=== PATIENT | female | born 1930 | race Caucasian/White ===

== ENCOUNTER 2017-10-25 09:47 | Inpatient (IN) | payer MEDICARE ==
[~2017-10-25] VITALS: Ht 152.4 cm; Wt 69.0 kg
[~2017-10-25 09:47] MED LIST: ASPI81 PO; LOTE20TA PO; SPIR25TA PO; TOPR100T15 PO; TOPR50TA PO
[2017-10-25 09:50] VITALS: BP 149/75; PULSE 87; RESP 16; TEMP 98.9; O2SAT 97
[2017-10-25] MEDS ORDERED: BENA20TA PO (10:11)
[2017-10-25] MEDS ORDERED: METO1TAB9 PO (10:11)
[2017-10-25] MEDS ORDERED: SPIR25TA PO (10:11)
[2017-10-25] MEDS ORDERED: METH2.5T PO (10:11)
[2017-10-25] MEDS ORDERED: TOPR100T PO (10:11)
[2017-10-25] MEDS ORDERED: SODIUM CHLORIDE 0.9% FLUSH 10 ML FLUSH IVF PRN (11:00)
[2017-10-25 11:30] VITALS: BP 130/67; PULSE 68; RESP 18; O2SAT 99
--- NOTE | 2017-10-25 11:39 | RADRPT ---
EXAM DATE/TIME: 10/25/2017 10:57 [facility] COMPARISON: CHEST SINGLE AP, February 25, 2015, 13:06. INDICATIONS : Short of breath and chest pain. MEDICAL HISTORY : None. SURGICAL HISTORY : None. ENCOUNTER: Initial ACUITY: 1 day PAIN SCORE: 4/10 LOCATION: Bilateral chest There are consolidative changes left base. Right lung is clear. Mild compensated clinically. The po rtion of the bony skeleton visualized is unremarkable. CONCLUSION: Consolidative changes left base. Eddie Naylor MD FACR on October 25, 2017 at 11:36 Board Certified Radiologist. This report was verified electronically.
[2017-10-25 11:47] LABS: AUTOMATED NEUTROPHIL # 4.6 TH/MM3 (1.8-7.7); BASOPHIL # 0.1 TH/MM3 (0-0.2); BASOPHIL % 0.9 % (0.0-2.0); EOSINOPHIL # 0.3 TH/MM3 (0-0.4); EOSINOPHIL % 3.8 % (0.0-4.0); HEMATOCRIT 34.2 % (35.0-46.0); HEMO FLAGS DIFF FINAL; LYMPH % 19.3 % (9.0-44.0); LYMPHOCYTE # 1.5 TH/MM3 (1.0-4.8); MEAN CELL VOLUME 103.4 FL (80.0-100.0); MEAN CORPUSCULAR HEMOGLOBIN 34.3 PG (27.0-34.0); MEAN CORPUSCULAR HGB CONC 33.2 % (32.0-36.0); MONO % 14.5 % (0.0-8.0); NEUT % 61.5 % (16.0-70.0); PLATELET COUNT 269 TH/MM3 (150-450); RED BLOOD COUNT 3.31 MIL/MM3 (4.00-5.30); RED CELL DISTRIBUTION WIDTH 13.8 % (11.6-17.2); WHITE BLOOD COUNT 7.5 TH/MM3 (4.0-11.0)
--- NOTE | 2017-10-25 11:47 | PD ---
HPI Chief Complaint: Respiratory Symptoms Time Seen by Provider: 10:40 Travel History International Travel<30 days: No Contact w/Intl Traveler<30days: No Traveled to known affect area: No History of Present Illness HPI Thin 87-year-old woman who presents to the emergency department saying that she' s been unable to breathe well for the past 3 weeks. She is a history of psoriatic arthritis and is on methotrexate, as well as CAD, and her history of diagonal diabetes in the past. She tripped and fell about 3 weeks ago. She was seen by her primary doctor who ordered x-rays of her left arm and CT scans of her head and face withdrawal reportedly unremarkable. Since that time she's had progressive worsening shortness of breath and dyspnea on exertion. Symptoms been constant and progressive since onset. No aggravating or alleviating factors. She's not had any pain in the chest or tenderness in the chest wall. She went to her primary doctor did an x-ray of her chest and then sent her to the emergency department. X-ray of the [place] poorly shows left- sided pleural effusion and some broken ribs. History Past Medical History Narrative Medical Psoriatic arthritis, on methotrexate CAD History of diabetes, diet-controlled Tetanus Vaccination: Unknown Influenza Vaccination: Yes Social History Alcohol Use: No Tobacco Use: No Allergies-Medications (Allergen,Severity, Reaction): Coded Allergies: lactose (Unverified Allergy, Severe, CRAMPING, BLOATING, HEADACHE, ) penicillin G (Unverified Allergy, Severe, RASH AND BLISTERS, 10/25/17) Reported Meds & Prescriptions Reported Meds & Active Scripts Active Reported Toprol XL (Metoprolol Succinate) 100 Mg Tab 100 Mg PO DAILY Spironolactone 25 Mg Tab 25 Mg PO DAILY Metoprolol Succinate ER 24 HR (Metoprolol Succinate) 50 Mg Tab 50 Mg PO HS Benazepril (Benazepril HCl) 20 Mg Tab 20 Mg PO HS Methotrexate 2.5 Mg Tab 2.5 Mg PO Q7D Review of Systems Except as stated in HPI: all other systems reviewed are Neg Physical Exam Narrative GENERAL: Thin 87-year-old woman, generally well-appearing. Mild respiratory distress. SKIN: Focused skin assessment warm/dry. HEAD: Atraumatic. Normocephalic. EYES: Pupils equal and round. No scleral icterus. No injection or drainage. ENT: No nasal bleeding or discharge. Mucous membranes pink and moist. NECK: Trachea midline. No JVD. CARDIOVASCULAR: Regular rate and rhythm. No murmur appreciated. RESPIRATORY: Mild tachypnea. Speaks in full sentences. Decreased breath sounds on the left with some coarse rhonchi. GASTROINTESTINAL: Abdomen soft, non-tender, nondistended. Hepatic and splenic margins not palpable. MUSCULOSKELETAL: No obvious deformities. No edema. NEUROLOGICAL: Awake and alert. No obvious cranial nerve deficits. Motor grossly within normal limits. Normal speech. PSYCHIATRIC: Appropriate mood and affect; insight and judgment normal. Data Data Last Documented VS Vital Signs Date Time Temp Pulse Resp B/P (MAP) Pulse Ox O2 Delivery O2 Flow Rate FiO2 10/25/17 11:30 68 18 130/67 (88) 99 10/25/17 09:50 98.9 Orders Orders Complete Blood Count With Diff (10/25/17 10:46) Comprehensive Metabolic Panel (10/25/17 10:46) B-Type Natriuretic Peptide (10/25/17 10:46) Act Partial Throm Time (Ptt) (10/25/17 10:46) Prothrombin Time / Inr (Pt) (10/25/17 10:46) Iv Access Insert/Monitor (10/25/17 10:46) Ecg Monitoring (10/25/17 10:46) Oximetry (10/25/17 10:46) Oxygen Administration (10/25/17 10:46) Chest, Single Ap (10/25/17 10:46) Sodium Chloride 0.9% Flush (Ns Flush) (10/25/17 11:00) Us Guided Thoracentesis (10/25/17 ) Consent (10/25/17 12:35) Amylase, Pleural Fluid (10/25/17 12:35) Glucose, Pleural Fluid (10/25/17 12:35) Ldh, Pleural Fluid (10/25/17 12:35) Pleural Fluid Ph (10/25/17 12:35) Pleural Fl Cell Count + Diff (10/25/17 12:35) Fluid Culture And Gram Stain (10/25/17 12:35) Fluid Afb Culture And Stain (10/25/17 12:35) Fluid Fungus Culture And Stain (10/25/17 12:35) Cytology Request For Service (10/25/17 12:35) Total Protein, Pleural Fluid (10/25/17 12:35) Total Protein (10/25/17 12:35) Ldh Serum (10/25/17 12:35) Admit Order (Ed Use Only) (10/25/17 ) Admit To Inpatient (10/25/17 ) Code Status (10/25/17 12:37) Vital Signs (Adult) Q4H (10/25/17 12:37) Activity Oob With Assistance (10/25/17 12:37) Diet Regular Basic (10/25/17 Lunch) Sodium Chloride 0.9% Flush (Ns Flush) (10/25/17 12:45) Sodium Chloride 0.9% Flush (Ns Flush) (10/25/17 21:00) Acetaminophen (Tylenol) (10/25/17 12:45) Ondansetron Inj (Zofran Inj) (10/25/17 12:45) Basic Metabolic Panel (Bmp) (10/26/17 06:00) Complete Blood Count With Diff (10/26/17 06:00) Chest, Pa & Lat (10/26/17 08:00) Electrocardiogram (10/25/17 12:37) Resp Oxygen [place] Titrat 1-4 L (10/25/17 ) Pt Request For Service (10/25/17 12:37) Scd Bilateral/Knee High ROSA.BID (10/25/17 12:37) Naloxone Inj (Narcan Inj) (10/25/17 12:45) Magnesium Hydroxide Liq (Milk Of Magnesi (10/25/17 12:45) Inpatient Certification (10/25/17 ) Labs Laboratory Tests Test 10/25/17 11:05 White Blood Count 7.5 TH/MM3 Red Blood Count 3.31 MIL/MM3 Hemoglobin 11.4 GM/DL Hematocrit 34.2 % Mean Corpuscular Volume 103.4 FL Mean Corpuscular Hemoglobin 34.3 PG Mean Corpuscular Hemoglobin Concent 33.2 % Red Cell Distribution Width 13.8 % Platelet Count 269 TH/MM3 Mean Platelet Volume 8.8 FL Neutrophils (%) (Auto) 61.5 % Lymphocytes (%) (Auto) 19.3 % Monocytes (%) (Auto) 14.5 % Eosinophils (%) (Auto) 3.8 % Basophils (%) (Auto) 0.9 % Neutrophils # (Auto) 4.6 TH/MM3 Lymphocytes # (Auto) 1.5 TH/MM3 Monocytes # (Auto) 1.1 TH/MM3 Eosinophils # (Auto) 0.3 TH/MM3 Basophils # (Auto) 0.1 TH/MM3 CBC Comment DIFF FINAL Differential Comment Prothrombin Time 11.6 SEC Prothromb Time International Ratio 1.1 RATIO Activated Partial Thromboplast Time 25.4 SEC Blood Urea Nitrogen 37 MG/DL Creatinine 2.20 MG/DL Random Glucose 101 MG/DL Total Protein 7.7 GM/DL Albumin 3.0 GM/DL Calcium Level 9.0 MG/DL Alkaline Phosphatase 98 U/L Aspartate Amino Transf (AST/SGOT) 21 U/L Alanine Aminotransferase (ALT/SGPT) 12 U/L Total Bilirubin 1.1 MG/DL Sodium Level 141 MEQ/L Potassium Level 4.4 MEQ/L Chloride Level 108 MEQ/L Carbon Dioxide Level 25.0 MEQ/L Anion Gap 8 MEQ/L Estimat Glomerular Filtration Rate 21 ML/MIN B-Type Natriuretic Peptide 159 PG/ML [facility] Medical Decision Making Medical Screen Exam Complete: Yes Emergency Medical Condition: Yes Interpretation(s) LABS CBC remarkable for mild anemia. CMP remarkable for mild elevated creatinine. BNP 159. Chest x-ray: Consolidative changes left base. Differential Diagnosis Pleural effusion, rib fracture, pleurisy, hemothorax, other Narrative Course Medical decision making 37 year-old woman with left-sided pleural effusion, on a sharp or 30-40% of the left hemithorax. Rib fractures as well the patient has no pain or tenderness on palpation or pain from fall. Hemothorax seems possible but less likely. Patient does have rheumatoid arthritis. She is a little bit tachypneic. We'll check labs, repeat AP x-ray, discussed with 4 to healthcare physician. Physician Communication Physician Communication Spoke with Dr. Jones, will admit patient. Diagnosis Primary Impression: Pleural effusion Admitting Information Admitting Physician Requests: Admit Jesse Flannery MD Oct 25, 2017 11:47
[2017-10-25 12:01] LABS: APTT (PATIENT) 25.4 SEC (24.3-30.1); INTERNATIONAL NORMALIZED RATIO 1.1 RATIO; PROTHROMBIN TIME - PATIENT 11.6 SEC (9.8-11.6)
[2017-10-25 12:07] LABS: ALT (GPT) 12 U/L (10-53)
[2017-10-25 12:09] LABS: ALKALINE PHOSPHATASE 98 U/L (45-117); TOTAL BILIRUBIN ADULT 1.1 MG/DL (0.2-1.0)
[2017-10-25 12:16] LABS: ANION GAP 8 MEQ/L (5-15); AST (GOT) 21 U/L (15-37); BLOOD UREA NITROGEN 37 MG/DL (7-18); CHLORIDE 108 MEQ/L (98-107); GLOMERULAR FILTRATION RATE 21 ML/MIN (>89); POTASSIUM 4.4 MEQ/L (3.5-5.1); SODIUM (NA) 141 MEQ/L (136-145)
[2017-10-25] MEDS ORDERED: NALOXONE HCL 0.4 MG/ML AMP IV PUSH PRN (12:45)
[2017-10-25] MEDS ORDERED: ONDANSETRON HCL 4 MG/2 ML VIAL IVP PRN (12:45)
[2017-10-25] MEDS ORDERED: SODIUM CHLORIDE 0.9% FLUSH 10 ML FLUSH IV FLUSH PRN (12:45)
[2017-10-25] MEDS ORDERED: MAGNESIUM HYDROXIDE SUSP 30 ML CUP PO PRN (12:45)
[2017-10-25] MEDS ORDERED: ACETAMINOPHEN 325 MG TAB PO PRN (12:45)
[2017-10-25] MEDS ORDERED: FOLI800T PO (13:48)
--- NOTE | 2017-10-25 14:02 | HHI.HP ---
HPI Service [facility] Hospitalists Primary Care Physician Raul Welch D.O. Admission Diagnosis pleural effusion Chief Complaint: SOB x 3 days Travel History International Travel<30 Days: No Contact w/Intl Traveler <30 Da: No Traveled to Known Affected Are: No History of Present Illness Thin 87-year-old female patient with a past medical history which includes CAD, bilateral cataracts, chronic kidney disease stage IV GFR between 15 and 29, decreased hearing, lumbar degenerative disc disease, GERD, hypertension, hyperlipidemia and psoriatic arthritis on methotrexate. Patient presents to the emergency department saying that she's been unable to breath well for the past 3 weeks. She tripped and fell about 3 weeks ago. She was seen by her primary doctor who ordered x-rays of her left arm and CT scans of her head and face reportedly unremarkable. Since that time she's had progressive worsening shortness of breath. Patient reports mostly she ahas been unable to take a deep breath due to discomfort. She went to her primary doctor who did a x-ray of her chest and then sent her to the emergency department. Outpatient 2 view chest X ray revealed: Moderate left-sided pleural effusion occupying 30-40% of the left hemothorax. Nondisplaced left lateral rib fractures, left ribs 7 and 8 Review of Systems Constitutional: COMPLAINS OF: Fatigue, DENIES: Fever, Chills Eyes: DENIES: Blurred vision, Diplopia Respiratory: COMPLAINS OF: Shortness of breath, DENIES: Cough, Sputum production Cardiovascular: COMPLAINS OF: Dyspnea on Exertion, DENIES: Chest pain, Lower Extremity Edema Gastrointestinal: DENIES: Abdominal pain, Constipation, Diarrhea Neurologic: COMPLAINS OF: Abnormal gait (bad right knee walks with a walker), Poor Balance, DENIES: Headache Psychiatric: DENIES: Anxiety, Confusion, Depression Past Family Social History Past Medical History CAD, bilateral cataracts, chronic kidney disease stage IV GFR between 15-29, decreased hearing, lumbar degenerative disc disease, GERD, hypertension, hyperlipidemia and psoriatic arthritis on methotrexate. Past Surgical History appendectomy, cataract surgery, laparoscopic cholecystectomy, fiberoptic colonoscopy, hysterectomy Reported Medications Toprol XL (Metoprolol Succinate) 100 Mg Tab 100 Mg PO DAILY Spironolactone 25 Mg Tab 25 Mg PO DAILY Metoprolol Succinate ER 24 HR (Metoprolol Succinate) 50 Mg Tab 50 Mg PO HS Benazepril (Benazepril HCl) 20 Mg Tab 20 Mg PO HS Methotrexate 2.5 Mg Tab 2.5 Mg PO Q7D Allergies: Coded Allergies: lactose (Unverified Allergy, Severe, CRAMPING, BLOATING, HEADACHE, ) penicillin G (Unverified Allergy, Severe, RASH AND BLISTERS, 10/25/17) Active Ordered Medications Current Medications Medications (Trade) Dose Ordered Sig/Dick Route Start Time Stop Time Status Last Admin (NS Flush) 2 ml UNSCH PRN IV FLUSH 10/25/17 12:45 (NS Flush) 2 ml BID IV FLUSH 10/25/17 21:00 (Tylenol) 650 mg Q4H PRN PO 10/25/17 12:45 (Zofran Inj) 4 mg Q6H PRN IVP 10/25/17 12:45 (Narcan Inj) 0.4 mg UNSCH PRN IV PUSH 10/25/17 12:45 (Milk Of Magnpat Liq) 30 ml Q12H PRN PO 10/25/17 12:45 Family History Family history reviewed and noncontributory Social History Patient denies EtOH use tobacco use or illicit drug use Physical Exam Vital Signs Vital Signs Date Time Temp Pulse Resp B/P (MAP) Pulse Ox O2 Delivery O2 Flow Rate FiO2 10/25/17 11:30 68 18 130/67 (88) 99 10/25/17 09:50 98.9 87 16 149/75 (99) 97 Physical Exam GENERAL: This is a well-nourished, well-developed patient, in no apparent distress. SKIN: No rashes, ecchymoses or lesions. Cool and dry. HEAD: Atraumatic. Normocephalic. No temporal or scalp tenderness. EYES: Pupils equal round and reactive. Extraocular motions intact. No scleral icterus. No injection or drainage. ENT: Nose without bleeding, purulent drainage or septal hematoma. Throat without erythema, tonsillar hypertrophy or exudate. Uvula midline. Airway patent. NECK: Trachea midline. No JVD or lymphadenopathy. Supple, nontender, no meningeal signs. CARDIOVASCULAR: Regular rate and rhythm without murmurs, gallops, or rubs. RESPIRATORY: Clear to auscultation. Breath sounds equal bilaterally. No wheezes , rales, or rhonchi. GASTROINTESTINAL: Abdomen soft, non-tender, nondistended. No hepato-splenomegaly , or palpable masses. No guarding. MUSCULOSKELETAL: Extremities without clubbing, cyanosis, or edema. No joint tenderness, effusion, or edema noted. No calf tenderness. Negative Homans sign bilaterally. NEUROLOGICAL: Awake and alert. Cranial nerves II through XII intact. Motor and sensory grossly within normal limits. Five out of 5 muscle strength in all muscle groups. Normal speech. Laboratory Laboratory Tests Test 10/25/17 11:05 White Blood Count 7.5 Red Blood Count 3.31 Hemoglobin 11.4 Hematocrit 34.2 Mean Corpuscular Volume 103.4 Mean Corpuscular Hemoglobin 34.3 Mean Corpuscular Hemoglobin Concent 33.2 Red Cell Distribution Width 13.8 Platelet Count 269 Mean Platelet Volume 8.8 Neutrophils (%) (Auto) 61.5 Lymphocytes (%) (Auto) 19.3 Monocytes (%) (Auto) 14.5 Eosinophils (%) (Auto) 3.8 Basophils (%) (Auto) 0.9 Neutrophils # (Auto) 4.6 Lymphocytes # (Auto) 1.5 Monocytes # (Auto) 1.1 Eosinophils # (Auto) 0.3 Basophils # (Auto) 0.1 CBC Comment DIFF FINAL Differential Comment Prothrombin Time 11.6 Prothromb Time International Ratio 1.1 Activated Partial Thromboplast Time 25.4 Blood Urea Nitrogen 37 Creatinine 2.20 Random Glucose 101 Total Protein 7.7 Albumin 3.0 Calcium Level 9.0 Alkaline Phosphatase 98 Aspartate Amino Transf (AST/SGOT) 21 Alanine Aminotransferase (ALT/SGPT) 12 Total Bilirubin 1.1 Sodium Level 141 Potassium Level 4.4 Chloride Level 108 Carbon Dioxide Level 25.0 Anion Gap 8 Estimat Glomerular Filtration Rate 21 Lactate Dehydrogenase 272 B-Type Natriuretic Peptide 159 Result Diagram: 10/25/17 1105 10/25/17 1105 Caprini VTE Risk Assessment Caprini VTE Risk Assessment: Mod/High Risk (score >= 2) Caprini Risk Assessment Model Point Value = 1 Point Value = 2 Point Value = 3 Point Value = 5 Age 41-60 Minor surgery BMI > 25 kg/m2 Swollen legs Varicose veins or History of unexplained or recurrent spontaneous Oral contraceptives or hormone replacement Sepsis (< 1 month) Serious lung disease, including pneumonia (< 1 month) Abnormal pulmonary function Acute myocardial infarction Congestive heart failure (< 1 month) History of inflammatory bowel disease Medical patient at bed rest Age 61-74 Arthroscopic surgery Major open surgery (> 45 min) Laparoscopic surgery (> 45 min) Malignancy Confined to bed (> 72 hours) Immobilizing plaster cast Central venous access Age >= 75 History of VTE Family history of VTE Factor V Leiden Prothrombin 07361H Lupus anticoagulant Anticardiolipin antibodies Elevated serum homocysteine Heparin-induced thrombocytopenia Other congenital or acquired thrombophilia Stroke (< 1 month) Elective arthroplasty Hip, pelvis, or leg fracture Acute spinal cord injury (< 1 month) Prophylaxis Regimen Total Risk Factor Score Risk Level Prophylaxis Regimen 0-1 Low Early ambulation 2 Moderate Order ONE of the following: *Sequential Compression Device (SCD) *Heparin 5000 units SQ BID 3-4 Higher Order ONE of the following medications: *Heparin 5000 units SQ TID *Enoxaparin/Lovenox 40 mg SQ daily (WT < 150 kg, CrCl > 30 mL/min) *Enoxaparin/Lovenox 30 mg SQ daily (WT < 150 kg, CrCl > 10-29 mL/min) *Enoxaparin/Lovenox 30 mg SQ BID (WT < 150 kg, CrCl > 30 mL/min) AND/OR *Sequential Compression Device (SCD) 5 or more Highest Order ONE of the following medications: *Heparin 5000 units SQ TID (Preferred with Epidurals) *Enoxaparin/Lovenox 40 mg SQ daily (WT < 150 kg, CrCl > 30 mL/min) *Enoxaparin/Lovenox 30 mg SQ daily (WT < 150 kg, CrCl > 10-29 mL/min) *Enoxaparin/Lovenox 30 mg SQ BID (WT < 150 kg, CrCl > 30 mL/min) AND *Sequential Compression Device (SCD) Assessment and Plan Problem List: (1) Pleural effusion ICD Codes: J90 - Pleural effusion, not elsewhere classified Status: Acute Plan: CXR reviewed and reveals: left sided Pleural effusion Outpatient 2 view chest X ray revealed: Moderate left-sided pleural effusion occupying 30-40% of the left hemothorax. Nondisplaced left lateral rib fractures, left ribs 7 and 8 Interventional radiology consult for ultrasound-guided thoracentesis on the left pleural effusion- not enough fluid present to safely drain CT chest with contrast to further evaluate Supplemental oxygen. Nasal cannula Incentive spirometer DVT prophylaxis with SCDs Discharge planning - If patient CT stable tomorrow plan to DC to SNF (2) Frequent falls ICD Codes: R29.6 - Repeated falls Plan: PT consulted (3) Psoriasis ICD Codes: L40.9 - Psoriasis, unspecified Plan: Continue methotrexate and folic acid per outpatient regiment (4) HTN (hypertension) ICD Codes: I10 - Essential (primary) hypertension Plan: Continue home metoprolol and JESSICA Monitor BP trend Due to frequent falls will check orthostatic blood pressure (5) CKD (chronic kidney disease), stage III ICD Codes: N18.3 - Chronic kidney disease, stage 3 (moderate) Plan: patient renal function near baseline continue current regiment and repeat BMP in AM Assessment and Plan Patient examined. Assessment and plan formulated with Elle Kramer PA-C. I agree with the above. left chest thoracentesis attempted but US showed insufficient fluid for drainage. obtain CT chest to better characterize consolidation at left lung base. Pt denies cough, fever, or wheezing. Physician Certification 2 Midnight Certification Type: Admission for Inpatient Services Order for Inpatient Services The services are ordered in accordance with Medicare regulations or non- Medicare payer requirements, as applicable. In the case of services not specified as inpatient-only, they are appropriately provided as inpatient services in accordance with the 2-midnight benchmark. Estimated LOS (days): 2 days is the estimated time the patient will need to remain in the hospital, assuming treatment plan goals are met and no additional complications. Post-Hospital Plan: [facility] Elle Kramer Oct 25, 2017 14:02 Jeffy Jones DO Oct 25, 2017 17:34
--- NOTE | 2017-10-25 14:28 | RADRPT ---
EXAM DATE/TIME: 10/25/2017 13:16 [facility] COMPARISON: No previous studies available for comparison. INDICATIONS : Left pleural effusion. MEDICAL HISTORY : Congestive heart failure. Diabetes mellitus type 2. Arthritis. Coronary artery disease. Stage IV damián l failure. HTN. Psoriasis. SURGICAL HISTORY : Cholecystectomy. Appendectomy. Hysterectomy. Bilateral cataract removal. Cardiac cath. Right carpel t unnel. ENCOUNTER: Initial ACUITY: 1 day PAIN SCORE: 1/10 LOCATION: Left chest MEASUREMENTS: SKIN TO PARIETAL PLEURA: Inadequate fluid SKIN TO MAX SAFE DEPTH: Inadequate fluid ESTIMATED FLUID VOLUME: 115 cc FLUID COMPOSITION: simple FINDINGS: No marking was performed. <There is insufficient volume for safe thoracentesis> CONCLUSION: Insufficient volume for safe thoracentesis. Aaron Gibson Jr., MD on October 25, 2017 at 13:53 Board Certified Radiologist. This report was verified electronically.
[2017-10-25 15:52] VITALS: BP 162/90; PULSE 69; RESP 18; TEMP 97.3; O2SAT 94
[2017-10-25 16:00] VITALS: BP 135/65; PULSE 80; RESP 20; TEMP 97.2; O2SAT 98
[2017-10-25 20:00] VITALS: BP 131/61; PULSE 80; RESP 16; TEMP 97.4; O2SAT 96
[2017-10-25] MEDS: METOPROLOL SUCCINATE 50 MG EXTENDED RELEASE TAB PO SCH (21:16)
[2017-10-25] MEDS: LISINOPRIL 20 MG TAB PO SCH (21:16)
[2017-10-25] MEDS: SODIUM CHLORIDE 0.9% FLUSH 10 ML FLUSH IV FLUSH SCH (21:16)
[2017-10-26] VITALS: BP 150/65; PULSE 73; RESP 16; TEMP 97.1; O2SAT 97
[2017-10-26 04:00] VITALS: BP 118/64; PULSE 83; RESP 18; TEMP 97.1; O2SAT 96
[2017-10-26 07:27] LABS: AUTOMATED NEUTROPHIL # 5.9 TH/MM3 (1.8-7.7); BASOPHIL % 0.5 % (0.0-2.0); EOSINOPHIL # 0.3 TH/MM3 (0-0.4); EOSINOPHIL % 3.1 % (0.0-4.0); HEMATOCRIT 35.4 % (35.0-46.0); HEMO FLAGS DIFF FINAL; LYMPH % 19.3 % (9.0-44.0); LYMPHOCYTE # 1.8 TH/MM3 (1.0-4.8); MEAN CELL VOLUME 102.7 FL (80.0-100.0); MEAN CORPUSCULAR HEMOGLOBIN 34.9 PG (27.0-34.0); MONO % 13.4 % (0.0-8.0); NEUT % 63.7 % (16.0-70.0); PLATELET COUNT 293 TH/MM3 (150-450); RED BLOOD COUNT 3.44 MIL/MM3 (4.00-5.30); RED CELL DISTRIBUTION WIDTH 13.9 % (11.6-17.2); WHITE BLOOD COUNT 9.2 TH/MM3 (4.0-11.0)
[2017-10-26 07:47] LABS: BICARBONATE 23.5 MEQ/L (21.0-32.0); POTASSIUM 4.6 MEQ/L (3.5-5.1)
[2017-10-26 08:00] VITALS: BP 130/68; PULSE 75; RESP 20; TEMP 97.2; O2SAT 98
[2017-10-26] MEDS ORDERED: SPIRONOLACTONE 25 MG TAB PO SCH (09:00)
[2017-10-26] MEDS ORDERED: METOPROLOL SUCCINATE 50 MG EXTENDED RELEASE TAB PO SCH (09:00)
[2017-10-26] MEDS: SODIUM CHLORIDE 0.9% FLUSH 10 ML FLUSH IV FLUSH SCH ×2 (09:00→21:00)
[2017-10-26] MEDS ORDERED: FOLIC ACID 1 MG TAB PO SCH (09:00)
--- NOTE | 2017-10-26 09:23 | RADRPT ---
EXAM DATE/TIME: 10/26/2017 08:58 [facility] COMPARISON: CHEST PA & LAT, January 11, 2013, 10:30. INDICATIONS : Shortness of breath for three weeks. MEDICAL HISTORY : None. SURGICAL HISTORY : None. ENCOUNTER: Subsequent ACUITY: 3 weeks PAIN SCORE: 0/10 LOCATION: Bilateral chest FINDINGS: PA and lateral views of the chest demonstrate the lungs to be symmetrically aerated without evidence of mass, infiltrate or effusion. The cardiac silhouette is slightly widened. Increased kyphosis of t he thoracic spine. Osseous structures are intact. CONCLUSION: Widened cardiac silhouette. Aorta slightly tortuous. Kyphosis of the thoracic spine. Jesse Hamm MD on October 26, 2017 at 9:19 Board Certified Radiologist. This report was verified electronically.
--- NOTE | 2017-10-26 09:25 | RADRPT ---
EXAM DATE/TIME: 10/26/2017 09:06 [facility] COMPARISON: No previous studies available for comparison. INDICATIONS : Evaluate consolidation at left lung base. RADIATION DOSE: 5.62 CTDIvol (mGy) MEDICAL HISTORY : Cardiovascular disease. Hypertension. Renal failure, chronic. SURGICAL HISTORY : Cholecystectomy. Appendectomy. ENCOUNTER: Initial ACUITY: 1 day PAIN SCALE: 0/10 LOCATION: chest TECHNIQUE: Volumetric scanning of the chest was performed. Using automated exposure control and adjustment of t he mA and/or kV according to patient size, radiation dose was kept as low as reasonably achievable to obtain optimal diagnostic quality images. DICOM format image data is available electronically for r eview and comparison. Follow-up recommendations for detected pulmonary nodules are based at a minimum on nodule size and pa tient risk factors according to Fleischner Society Guidelines. FINDINGS: LUNGS: There is no pneumothorax. There is passive atelectasis in left lower lobe. No concerning pulmonary nodule is visualized. PLEURAE: There is no pleural thickening. There is a small left pleural effusion. MEDIASTINUM: The heart and great vessels demonstrate no acute abnormality. There is no mediastinal or hilar lymph adenopathy. The cardiac silhouette is enlarged with a prominent pericardial effusion AXILLAE: Within normal limits. No lymphadenopathy. MUSCULOSKELETAL: Within normal limits for patient age. MISCELLANEOUS: The visualized upper abdominal organs demonstrate no acute abnormality. Cholecystectomy clips CONCLUSION: Passive atelectasis left lower lobe with small left pleural effusion. Large pericardial effusion with enlarged heart. No concerning infiltrate or mass. Jesse Hamm MD on October 26, 2017 at 9:21 Board Certified Radiologist. This report was verified electronically.
[2017-10-26 12:00] VITALS: BP 91/50; PULSE 76; RESP 20; TEMP 97.4; O2SAT 97
--- NOTE | 2017-10-26 12:52 | HHI.PR ---
Subjective Remarks Patient appears to be in no acute distress c/o pain with deep breathing Objective Vitals Vital Signs Date Time Temp Pulse Resp B/P (MAP) Pulse Ox O2 Delivery O2 Flow Rate FiO2 10/26/17 08:00 97.2 75 20 130/68 (88) 98 10/26/17 08:00 Room Air 10/26/17 04:00 Room Air 10/26/17 04:00 97.1 83 18 118/64 (82) 96 10/26/17 00:00 Room Air 10/26/17 00:00 97.1 73 16 150/65 (93) 97 10/25/17 20:00 Room Air 10/25/17 20:00 97.4 80 16 131/61 (84) 96 10/25/17 16:00 97.2 80 20 135/65 (88) 98 10/25/17 15:52 97.3 69 18 162/90 (114) 94 10/25/17 14:14 Result Diagram: 10/26/17 0650 10/26/17 0650 Other Results Laboratory Tests Test 10/25/17 11:05 10/26/17 06:50 White Blood Count 7.5 TH/MM3 9.2 TH/MM3 Red Blood Count 3.31 MIL/MM3 3.44 MIL/MM3 Hemoglobin 11.4 GM/DL 12.0 GM/DL Hematocrit 34.2 % 35.4 % Mean Corpuscular Volume 103.4 FL 102.7 FL Mean Corpuscular Hemoglobin 34.3 PG 34.9 PG Mean Corpuscular Hemoglobin Concent 33.2 % 34.0 % Red Cell Distribution Width 13.8 % 13.9 % Platelet Count 269 TH/MM3 293 TH/MM3 Mean Platelet Volume 8.8 FL 8.7 FL Neutrophils (%) (Auto) 61.5 % 63.7 % Lymphocytes (%) (Auto) 19.3 % 19.3 % Monocytes (%) (Auto) 14.5 % 13.4 % Eosinophils (%) (Auto) 3.8 % 3.1 % Basophils (%) (Auto) 0.9 % 0.5 % Neutrophils # (Auto) 4.6 TH/MM3 5.9 TH/MM3 Lymphocytes # (Auto) 1.5 TH/MM3 1.8 TH/MM3 Monocytes # (Auto) 1.1 TH/MM3 1.2 TH/MM3 Eosinophils # (Auto) 0.3 TH/MM3 0.3 TH/MM3 Basophils # (Auto) 0.1 TH/MM3 0.0 TH/MM3 CBC Comment DIFF FINAL DIFF FINAL Differential Comment Prothrombin Time 11.6 SEC Prothromb Time International Ratio 1.1 RATIO Activated Partial Thromboplast Time 25.4 SEC Blood Urea Nitrogen 37 MG/DL 30 MG/DL Creatinine 2.20 MG/DL 1.90 MG/DL Random Glucose 101 MG/DL 107 MG/DL Total Protein 7.7 GM/DL Albumin 3.0 GM/DL Calcium Level 9.0 MG/DL 9.3 MG/DL Alkaline Phosphatase 98 U/L Aspartate Amino Transf (AST/SGOT) 21 U/L Alanine Aminotransferase (ALT/SGPT) 12 U/L Total Bilirubin 1.1 MG/DL Sodium Level 141 MEQ/L 141 MEQ/L Potassium Level 4.4 MEQ/L 4.6 MEQ/L Chloride Level 108 MEQ/L 107 MEQ/L Carbon Dioxide Level 25.0 MEQ/L 23.5 MEQ/L Anion Gap 8 MEQ/L 11 MEQ/L Estimat Glomerular Filtration Rate 21 ML/MIN 25 ML/MIN Lactate Dehydrogenase 272 U/L B-Type Natriuretic Peptide 159 PG/ML Imaging Last Impressions Chest X-Ray 10/26/17 0800 Signed Impressions: Service Date/Time: October 08:58 - CONCLUSION: Widened cardiac silhouette. Aorta slightly tortuous. Kyphosis of the thoracic spine. Jesse Hamm MD Chest CT 10/26/17 0000 Signed Impressions: Service Date/Time: October 09:06 - CONCLUSION: Passive atelectasis left lower lobe with small left pleural effusion. Large pericardial effusion with enlarged heart. No concerning infiltrate or mass. Jesse Hamm MD Chest Ultrasound 10/25/17 0000 Signed Impressions: Service Date/Time: Wednesday, October 25, 2017 13:16 - CONCLUSION: Insufficient volume for safe thoracentesis. Aaron Gibson Jr., MD Objective Remarks GENERAL: This is a well-nourished, well-developed patient, in no apparent distress. CARDIOVASCULAR: Regular rate and rhythm RESPIRATORY: Clear to auscultation. Breath sounds equal bilaterally. GASTROINTESTINAL: Abdomen soft, non-tender, nondistended. No hepato-splenomegaly , or palpable masses. No guarding. MUSCULOSKELETAL: Extremities without clubbing, cyanosis, or edema. No joint tenderness, effusion, or edema noted. No calf tenderness. Negative Homans sign bilaterally. NEUROLOGICAL: Awake and alert. No focal deficits noted. Motor and sensory grossly within normal limits. 4-5 out of 5 muscle strength in all muscle groups. Normal speech. A/P Problem List: (1) Pleural effusion ICD Codes: J90 - Pleural effusion, not elsewhere classified Status: Acute Plan: CXR reviewed and reveals: left sided Pleural effusion Outpatient 2 view chest X ray revealed: Moderate left-sided pleural effusion occupying 30-40% of the left hemothorax. Nondisplaced left lateral rib fractures, left ribs 7 and 8 Incentive spirometer Interventional radiology consult for ultrasound-guided thoracentesis on the left pleural effusion- not enough fluid present to safely drain CT chest with contrast passive atelectasis left lower lobe with small left pleural effusion. Large pericardial effusion with enlarged heart. No concerning infiltrate or mass Stat 2 D echocardiogram ordered- discussed with Dr. Thompson and histotechnician. await results 2D echocardiogram reviewed and revealed: Normal left ventricular size Wall thickness normal No regional wall motion abnormalities are present severe thickening of the mitral valve leaflets trace- to- mild mitral valve regurgitations There is ubbty-qg-ycfdqayk pericardial effusion present No hemodynamically significant echocardiographic features were observed (no pre-tamponade physiology) Patient will need to follow up with cardiology after DC DVT prophylaxis with SCDs (2) Frequent falls ICD Codes: R29.6 - Repeated falls Plan: PT consulted (3) Psoriasis ICD Codes: L40.9 - Psoriasis, unspecified Plan: Continue methotrexate and folic acid per outpatient regiment (4) HTN (hypertension) ICD Codes: I10 - Essential (primary) hypertension Plan: Continue home metoprolol and JESSICA Monitor BP trend Due to frequent falls will check orthostatic blood pressure (5) CKD (chronic kidney disease), stage III ICD Codes: N18.3 - Chronic kidney disease, stage 3 (moderate) Plan: patient renal function near baseline continue current regiment and repeat BMP in AM Assessment and Plan Patient examined. Assessment and plan formulated with Elle Kramer PA-C. I agree with the above. Elle Kramer Oct 26, 2017 12:52 Jeffy Jones DO Oct 30, 2017 01:26
--- NOTE | 2017-10-26 14:06 | ECHRPT ---
Indication: pericardial Effussion CONCLUSIONS Normal left ventricular size. Wall thickness is normal. No regional wall motion abnormalities are present. Severe thickening of the mitral valve leaflets. Dhync-gj-qsab mitral valve regurgitation. The pulmonary valve is not well visualized. There is a qxjhw-tp-frdmmjjz pericardial effusion present. A left sided pleural effusion is present. No hemodynamically significant echocardiographic features were observed (no pre-tamponade physiology). BP: 130 / 68 HR: 75 Rhythm: Sinus Technical Quality:Fair FINDINGS LEFT VENTRICLE The left ventricular systolic function is normal with an estimated ejection fraction in the range of 60-65%. Normal left ventricular size. Wall thickness is normal. No regional wall motion abnormalities are present. RIGHT VENTRICLE Normal right ventricular size and systolic function. LEFT ATRIUM The left atrial size is normal. RIGHT ATRIUM The right atrial size is normal. ATRIAL SEPTUM Normal atrial septal thickness without atrial level shunting by limited color doppler interrogation. AORTA The aortic root and proximal ascending aorta are normal in size on limited imaging. MITRAL VALVE Severe thickening of the mitral valve leaflets. Fubed-fi-etpv mitral valve regurgitation. AORTIC VALVE Trileaflet aortic valve. No aortic valve stenosis or regurgitation. TRICUSPID VALVE Structurally normal tricuspid valve. No tricuspid valve stenosis or regurgitation. PULMONARY VALVE The pulmonary valve is not well visualized. VESSELS The inferior vena cava is normal in size. PERICARDIUM There is a ctdsc-mu-zzwwrsmf pericardial effusion present. A left sided pleural effusion is present. No hemodynamically significant echocardiographic features were observed (no pre-tamponade physiology). Jesse Thompson MD, FACC (Electronically Signed) Final Date:26 October 2017 14:05
--- NOTE | 2017-10-26 15:48 | EKG ---
Date Performed: 10/25/2017 Time Performed: 12:51:48 PTAGE: 87 years EKG: Sinus rhythm ST DEVIATION AND MODERATE T-WAVE ABNORMALITY, CONSIDER ANTEROLATERAL ISCHEMIA ST DEVIATION AND MODER ATE T-WAVE ABNORMALITY, CONSIDER INFERIOR ISCHEMIA ABNORMAL ECG PREVIOUS TRACING 02/25/2015 @ 12.43 Compared to prior tracing no significant change DOCTOR: Juan Jose Alejandro Interpretating Date/Time 10/26/2017 15:48:00
--- NOTE | 2017-10-26 15:56 | HHI.DS ---
Discharge Summary Admission Date Oct 25, 2017 at 12:40 Discharge Date: Oct 27, 2017 Admitting Diagnosis pleural effusion (1) Pleural effusion Diagnosis: Principal ICD Codes: J90 - Pleural effusion, not elsewhere classified Status: Acute (2) Frequent falls Diagnosis: Principal ICD Codes: R29.6 - Repeated falls (3) Psoriasis Diagnosis: Secondary ICD Codes: L40.9 - Psoriasis, unspecified (4) HTN (hypertension) Diagnosis: Secondary ICD Codes: I10 - Essential (primary) hypertension (5) CKD (chronic kidney disease), stage III Diagnosis: Secondary ICD Codes: N18.3 - Chronic kidney disease, stage 3 (moderate) Consultants none Procedures none Brief History Thin 87-year-old female patient with a past medical history which includes CAD, bilateral cataracts, chronic kidney disease stage IV GFR between 15 and 29, decreased hearing, lumbar degenerative disc disease, GERD, hypertension, hyperlipidemia and psoriatic arthritis on methotrexate. Patient presents to the emergency department saying that she's been unable to breath well for the past 3 weeks. She tripped and fell about 3 weeks ago. She was seen by her primary doctor who ordered x-rays of her left arm and CT scans of her head and face reportedly unremarkable. Since that time she's had progressive worsening shortness of breath. Patient reports mostly she ahas been unable to take a deep breath due to discomfort. She went to her primary doctor who did a x-ray of her chest and then sent her to the emergency department. Outpatient 2 view chest X ray revealed: Moderate left-sided pleural effusion occupying 30-40% of the left hemothorax. Nondisplaced left lateral rib fractures, left ribs 7 and 8 CBC/BMP: 10/26/17 0650 10/26/17 0650 Significant Findings Laboratory Tests Test 10/25/17 11:05 10/26/17 06:50 Red Blood Count 3.31 MIL/MM3 (4.00-5.30) 3.44 MIL/MM3 (4.00-5.30) Hemoglobin 11.4 GM/DL (11.6-15.3) Hematocrit 34.2 % (35.0-46.0) Mean Corpuscular Volume 103.4 FL (80.0-100.0) 102.7 FL (80.0-100.0) Mean Corpuscular Hemoglobin 34.3 PG (27.0-34.0) 34.9 PG (27.0-34.0) Monocytes (%) (Auto) 14.5 % (0.0-8.0) 13.4 % (0.0-8.0) Monocytes # (Auto) 1.1 TH/MM3 (0-0.9) 1.2 TH/MM3 (0-0.9) Blood Urea Nitrogen 37 MG/DL (7-18) 30 MG/DL (7-18) Creatinine 2.20 MG/DL (0.50-1.00) 1.90 MG/DL (0.50-1.00) Albumin 3.0 GM/DL (3.4-5.0) Total Bilirubin 1.1 MG/DL (0.2-1.0) Chloride Level 108 MEQ/L (98-107) Estimat Glomerular Filtration Rate 21 ML/MIN (>89) 25 ML/MIN (>89) Lactate Dehydrogenase 272 U/L (84-246) B-Type Natriuretic Peptide 159 PG/ML (0-100) Random Glucose 107 MG/DL (74-106) Imaging Last Impressions Chest X-Ray 10/26/17 0800 Signed Impressions: Service Date/Time: October 08:58 - CONCLUSION: Widened cardiac silhouette. Aorta slightly tortuous. Kyphosis of the thoracic spine. Jesse Hamm MD Chest CT 10/26/17 0000 Signed Impressions: Service Date/Time: October 09:06 - CONCLUSION: Passive atelectasis left lower lobe with small left pleural effusion. Large pericardial effusion with enlarged heart. No concerning infiltrate or mass. Jesse Hamm MD Chest Ultrasound 10/25/17 0000 Signed Impressions: Service Date/Time: Wednesday, October 25, 2017 13:16 - CONCLUSION: Insufficient volume for safe thoracentesis. Aaron Gibson Jr., MD PE at Discharge GENERAL: This is a well-nourished, well-developed patient, in no apparent distress. CARDIOVASCULAR: Regular rate and rhythm RESPIRATORY: Clear to auscultation. Breath sounds equal bilaterally. GASTROINTESTINAL: Abdomen soft, non-tender, nondistended. No hepato-splenomegaly , or palpable masses. No guarding. MUSCULOSKELETAL: Extremities without clubbing, cyanosis, or edema. No joint tenderness, effusion, or edema noted. No calf tenderness. Negative Homans sign bilaterally. NEUROLOGICAL: Awake and alert. No focal deficits noted. Motor and sensory grossly within normal limits. 4-5 out of 5 muscle strength in all muscle groups. Normal speech. Hospital Course Pleural effusion CXR reviewed and reveals: left sided Pleural effusion Outpatient 2 view chest X ray revealed: Moderate left-sided pleural effusion occupying 30-40% of the left hemothorax. Nondisplaced left lateral rib fractures, left ribs 7 and 8 Incentive spirometer Interventional radiology consult for ultrasound-guided thoracentesis on the left pleural effusion- not enough fluid present to safely drain CT chest with contrast passive atelectasis left lower lobe with small left pleural effusion. Large pericardial effusion with enlarged heart. No concerning infiltrate or mass Stat 2 D echocardiogram ordered- discussed with Dr. Thompson and weight reducing technician. await results 2D echocardiogram reviewed and revealed: Normal left ventricular size Wall thickness normal No regional wall motion abnormalities are present severe thickening of the mitral valve leaflets trace- to- mild mitral valve regurgitations There is erifo-pp-sdnfdfnr pericardial effusion present No hemodynamically significant echocardiographic features were observed (no pre-tamponade physiology) Patient will need to follow up with cardiology after DC DVT prophylaxis with SCDs Frequent falls PT consulted- recommending SNF at DC- patient refusing rehab, agrees to DC home with [facility] Psoriasis Continue methotrexate and folic acid per outpatient regiment HTN (hypertension) Continue home metoprolol and JESSICA Monitor BP trend Due to frequent falls will check orthostatic blood pressure CKD (chronic kidney disease), stage III patient renal function improving and near baseline Pt Condition on Discharge: Stable Discharge Disposition: Disch w/ Home Health Serv Discharge Instructions DIET: Follow Instructions for: As Tolerated, No Restrictions Activities you can perform: Regular-No Restrictions Follow up Referrals: Cardiology - [address] Thompson PCP Follow-up - [address] Welch Continued Medications: Benazepril (Benazepril) 20 Mg Tab 20 MG PO HS for Blood Pressure Management, #30 TAB 0 Refills Folic Acid (Folic Acid) 0.8 Mg Tab 800 MCG PO DAILY for Nutritional Supplement, TAB 0 Refills Methotrexate (Methotrexate) 2.5 Mg Tab 2.5 MG PO Q7D, TAB 0 Refills Metoprolol Succinate ER 24 HR (Metoprolol Succinate ER 24 HR) 50 Mg Tab 50 MG PO HS, #30 TAB 0 Refills Metoprolol Succinate ER 24 HR (Toprol XL) 100 Mg Tab 100 MG PO DAILY, #30 TAB 0 Refills Spironolactone (Spironolactone) 25 Mg Tab 25 MG PO DAILY, #30 TAB 0 Refills Additional Information Patient examined. Assessment and plan formulated with Elle Kramer PA-C. I agree with the above. Elle Kramer Oct 26, 2017 15:56 Jeffy Jones DO Oct 30, 2017 01:27
[2017-10-26 16:00] VITALS: BP 121/69; PULSE 76; RESP 20; TEMP 97.9; O2SAT 96
--- NOTE | 2017-10-26 17:44 | HHI.FF ---
Face to Face Verification Diagnosis: (1) Frequent falls (2) CKD (chronic kidney disease), stage III (3) HTN (hypertension) (4) Pleural effusion Physical Therapy Order: Evaluate and Treat, Improve ambulation, Strength and gait training Home Health Nursing Order: Medical education Signs/symptoms of disease process Medication education-adverse effect Nursing assessment with vital signs [employer] [id number] Order: To Evaluate: Living conditions/environment, Support services Order: To Provide: Long range planning, Community services I have seen patient Yissel Donis on 10/26/17. My clinical findings support the need for the requested home health care services because: Ltd mobility - disease progression Patient has SOB Limited ability to care for self I certify that my clinical findings support that this patient is homebound because: Unsteady gait/balance Unsafe to leave home unassisted Elle Kramer Oct 26, 2017 17:44
[2017-10-26] MEDS: LISINOPRIL 20 MG TAB PO SCH (21:10)
[2017-10-26] MEDS: METOPROLOL SUCCINATE 50 MG EXTENDED RELEASE TAB PO SCH (21:10)
[2017-10-26 21:18] VITALS: BP 111/46; PULSE 79; RESP 18; TEMP 79; O2SAT 95
[2017-10-27 00:20] VITALS: BP 136/58; PULSE 72; RESP 20; TEMP 97.3; O2SAT 96
[2017-10-27 04:00] VITALS: BP 135/63; PULSE 77; RESP 20; TEMP 97.8; O2SAT 98
[2017-10-27] MEDS: SODIUM CHLORIDE 0.9% FLUSH 10 ML FLUSH IV FLUSH SCH (07:29)
[2017-10-27 07:50] VITALS: O2SAT 100
[2017-10-27 08:00] VITALS: BP 121/60; PULSE 77; RESP 20; TEMP 97.1; O2SAT 97
== END 2017-10-27 12:27 | disposition home health service (06) | DRG 187 ==
LOC: NEPE 09:47 → NEDA 12:40 → N04B 14:12
PROVIDERS: ADMIT Hospitalist; ATTEND Hospitalist
DX: J90 Pleural effusion, not elsewhere classified (principal); S22.42XA Multiple fractures of ribs, left side, initial encounter for closed fracture; I31.3 Pericardial effusion (noninflammatory); E11.22 Type 2 diabetes mellitus with diabetic chronic kidney disease; L40.50 Arthropathic psoriasis, unspecified; J98.11 Atelectasis; I12.9 Hypertensive chronic kidney disease with stage 1 through stage 4 chronic kidney disease, or unspecified chronic kidney disease; I25.10 Atherosclerotic heart disease of native coronary artery without angina pectoris; N18.3 Chronic kidney disease, stage 3 (moderate); K21.9 Gastro-esophageal reflux disease without esophagitis; E78.5 Hyperlipidemia, unspecified; M51.36 Other intervertebral disc degeneration, lumbar region; H91.90 Unspecified hearing loss, unspecified ear; M06.9 Rheumatoid arthritis, unspecified; I51.7 Cardiomegaly; R29.6 Repeated falls; Z90.710 Acquired absence of both cervix and uterus; W01.0XXA Fall on same level from slipping, tripping and stumbling without subsequent striking against object, initial encounter
CPT/HCPCS: 71010; 71020; 71250; 76604; 80048; 80053; 83615; 83880; 85025; 85610; 85730; 87015; 93005; 93306; 94150; 99285